=== PATIENT | male | born 1950 | race Caucasian/White ===

== ENCOUNTER 2023-01-14 09:55 | Outpatient (REF) | payer MEDICARE, SELFPAY ==
[2023-01-14 15:43] LABS: Anion Gap 13 (12-20); Blood Urea Nitrogen 12 mg/dL (9-16); Calcium 9.9 mg/dL (8.4-10.2); Carbon Dioxide 26 mmol/L (22-29); Chloride 102 mmol/L (96-108); Cholesterol 159 mg/dL (<200); Estimated Glomerular Filt Rate > 60; Glucose Fasting 98 mg/dL (60-99); HDL Cholesterol 95 mg/dL (>40); LDL Cholesterol Calculated 53 mg/dL (<100); Potassium 4.3 mmol/L (3.3-5.1); Sodium 137 mmol/L (135-145); Triglycerides 55 mg/dL (<150)
== END 2023-01-14 09:56 | disposition home or self-care (01) ==
LOC: HO.CHCLDS 09:55
PROVIDERS: Visit Provider Family Medicine
DX: E87.1 Hypo-osmolality and hyponatremia (principal); E78.5 Hyperlipidemia, unspecified
CPT/HCPCS: 36415; 80048; 80061

== ENCOUNTER → 2025-01-06 08:48 | Outpatient (BNV) | payer MEDICARE, SELFPAY | PROVIDERS: PCP Family Medicine; Visit Provider Radiology Diagnostic Radiology | DX: M75.122 Complete rotator cuff tear or rupture of left shoulder, not specified as traumatic (principal); M65.822 Other synovitis and tenosynovitis, left upper arm | CPT/HCPCS: 73221 ==

== ENCOUNTER 2025-01-06 08:50 | Outpatient (REF) | payer MEDICARE, SELFPAY ==
--- NOTE | ~2025-01-06 | MR_ITS ---
CLINICAL HISTORY: chronic pain unable to lift above 45 degree MR left shoulder without gadolinium Comparison: None provided Findings: No acute fracture or pathologic bone lesion. No significant arthritic changes. Type II acromion. Fluid is present within the subacromial subdeltoid bursa and in the subcoracoid bursa. There is a complete full-thickness tear of the supraspinatus tendon retracted approximately 1.5 cm. There is no significant atrophy of the supraspinatus muscle. The rest of the muscles and tendons of the rotator cuff are intact. There is degeneration of the labrum particularly the posterior aspect. There is no definite evidence of an acute labral tear. The biceps anchor is intact. The biceps tendon is normal. There is tenosynovitis of the long head of the biceps. No tears of the glenoid labrum. There is no definite evidence of an acute ligamentous injury. IMPRESSION: 1. Complete full-thickness tear of the supraspinatus tendon with retraction. 2. Fluid within the subacromial subdeltoid bursa and within the subcoracoid bursa. 3. Tenosynovitis of the long head of the biceps. 4. Degeneration of the glenoid labrum particularly posteriorly. This document has been electronically signed by: Chandler Moore MD on 01/07/2025 11:31:06
--- OUTSIDE RECORDS SUMMARY | 2025-01-06 08:54 | XMS_ITS | Encounter Summary ---
Author Organization [employer] Address [address] [place] [address] Care Team Providers Care Electro Optical Engineer Name Role Phone Natty Cotto MD Primary Care Provider [phone] Reason for Visit * Reason Comments Med Refill Encounter Details Date Type Department Care Team ([facility] st Contact Info) Description 12/15/2024 Refill [facility] [address] [place] [address] Donna Loza MD [address] [place], [place] [phone] Stented coronary artery; Hypertension, unspecified type Social History Tobacco Use Types Packs/Day Years Used Date Smoking Tobacco: Every Day Cigarettes Passive Smoke Exposure: Never Smokeless Tobacco: Never Depression Answer Date Recorded Patient Health Questionnaire-9 Score 3 12/23/2022 Housing Stability Answer Date Recorded What is your housing situation today? I have martha grace 03/08/[address] you li ve. Do you have problems with any of the following? None of the above 03/08/2023 Food Insecurity Answer Date Recorded Within the past 12 months, y ou worried that your food would run out before you got money to buy more: Never True 03/08/2023 Within the past 12 months,th e food you bought just didn't last and you didn't have enough money to get more: Never True 10/2022 Transportation Answer Date Recorded In the past 12 months, has l ack of transportation kept you from medical appts, meetings, work or from getting things needed for daily living? Yes, it has kept me from medical appointments or getting medications. 07/26/2023 Utilities Answer Date Recorded In the past 12 months, has t he electric, gas, oil or water company threatened to shut off services in your home? No 03/08/2023 Depression Answer Date Recorded Patient Health Questionnaire-2 Score 2 12/23/2022 Sex and Gender Information Value Date Recorded Sex Assigned at Male 03/01/2022 10:36 AM EDT Legal Sex Male 10:36 AM EDT Gender Identity Male 03/01/2022 10:36 AM EDT Sexual Orientation Straight 03/01/2022 10 :36 AM EDT documented as of this encounter Plan of Treatment Upcoming Encounters Date Type Department Care Team (Late st Contact Info) Description 01/17/2025 11:15 AM EDT Office Visit [facility] MED & PEDS [address] [place] [address] Natty Cotto MD [address] [place] [address] documented as of this encounter Visit Diagnoses Diagnosis Stented coronary artery Postsurgical percutaneous transluminal coronary angioplasty status Hypertension, unspecified type documented in this encounter Additional Health Concerns Assessment Noted Time PHQ-9 Depression Total Score: 3 12/24/19 23 1:40 PM EDT documented as of this encounter Care Teams Electro Optical Engineer Relationship Specialty Start Date End Date Natty Cotto MD [address] [place] [address] PCP - General Family Medicine 04/15/21 documented as of this encounter
--- OUTSIDE RECORDS SUMMARY | 2025-01-06 08:54 | XMS_ITS | Clinical Summary ---
Author Organization [employer] Address [address] [facility] 7t [place] [address] Care Team Providers Care Leisure Studies Professor Name Role Phone Natty Cotto MD Primary Care Provider [phone] Allergies No known active allergies Medications amLODIPine (Norvasc) 10 MG tabletIndicati ons:Hypertensi on, unspecified type Take 1 tablet (10 mg) by mouth Once per day. 90 tablet 1 12/13/19 25 Active aspirin (Aspirin Low Dose) 81 MG EC tabletIndicati ons:Stented coronary artery Take 1 tablet (81 mg) by mouth Once per day. 90 tablet 1 12/13/19 25 Active losartan (Cozaar) 50 MG tabletIndicati ons:Hypertensi on, unspecified type Take 1 tablet (50 mg) by mouth Once per day. 90 tablet 1 12/13/19 25 Active rosuvastatin (Crestor) 40 MG tabletIndicati ons:Stented coronary artery Take 1 tablet (40 mg) by mouth Once per day. 90 tablet 1 12/13/19 25 Active sildenafil (Viagra) 100 MG tabletIndicati ons:PVD (peripheral vascular disease) ([facility]) Take 1 tablet (100 mg) by mouth if needed for erectile dysfunction. TAKE 1 TABLET BY MOUTH IF NEEDED FOR ERECTILE DYSFUNCTION 10 tablet 2 12/13/19 25 Active Aspirin Low Dose 81 MG EC tablet TAKE 1 TABLET BY MOUTH EVERY DAY 90 tablet 1 06/21/19 25 025 Discontinued(R eorder (will not trigger notification to Pharmacy)) rosuvastatin (Crestor) 40 MG tablet Take 1 tablet (40 mg) by mouth Once per day. 90 tablet 1 06/20/19 25 025 Discontinued(R eorder (will not trigger notification to Pharmacy)) losartan (Cozaar) 50 MG tabletIndicati ons:Hypertensi on, unspecified type TAKE 1 TABLET(50 MG) BY MOUTH IN THE MORNING 90 tablet 1 07/14/19 025 Discontinued(R eorder (will not trigger notification to Pharmacy)) amLODIPine (Norvasc) 10 MG tabletIndicati ons:Hypertensi on, unspecified type TAKE 1 TABLET(10 MG) BY MOUTH IN THE MORNING 90 tablet 1 07/14/19 025 Discontinued(R eorder (will not trigger notification to Pharmacy)) sildenafil (Viagra) 100 MG tablet TAKE 1 TABLET BY MOUTH IF NEEDED FOR ERECTILE DYSFUNCTION 10 tablet 09/21/19 025 Discontinued(R eorder (will not trigger notification to Pharmacy)) Active Problems Problem Noted Date Diagnosed Date Chronic left shoulder pain 12/19/2024 Wheezing 04/29/2023 Chronic cough 04/29/2023 Assessment & Plan (05/05/2023 9:37 AM EST): Will send to PFT testing to r/o obstructive lung disease, hx of smoking. Mild wheezing on exam, declined ENRIQUE. Screening for lung cancer 04/29/2023 Alcoholism 10/01/2022 Cigarette smoker 10/01/2022 Decreased right shoulder range of motion 023 Assessment & Plan (10/15/2022 11:27 AM EDT): Will send for shoulder xray and consider joint injection if necessary. Noise-induced hearing loss of both ears 10/02/19 23 Stented coronary artery 10/01/2022 Assessment & Plan (10/01/2022 10:33 AM EDT): Will refer to cardiology. Vision loss, bilateral 10/01/2022 Hypertension 10/01/2022 Assessment & Plan (05/05/2023 9:37 AM EST): Controlled. Continue current regimen. Assessment & Plan (12/23/2022 2:24 PM EDT): Continue current regimen.Will schedule nursing appointment in 3 weeks to assess home readings and adjust regimen as needed. Assessment & Plan (10/15/2022 11:27 AM EDT): Improved but still not within range. Will add losartan to regimen and follow up in 6 weeks. Assessment & Plan (10/01/2022 10:32 AM EDT): Continued elevated readings. Will start on amlodipine 10 mg. Advised to RTC if experiencing lower extremity swelling. Will follow up in x2 weeks and send labs to recheck levels. PVD (peripheral vascular disease) 10/01/2022 Assessment & Plan (10/15/2022 11:26 AM EDT): Resend referral for vascular ultrasound. Assessment & Plan (10/01/2022 10:32 AM EDT): Will refer to vascular surgeon for ultrasound and BP readings of lower extremities to assess blockage. Will start on rosuvastatin 40 mg. 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 04/29/2023 04/29/2023 Encounters Date Type Department Care Team Description 12/19/2024 3:45 PM EDT Office Visit [facility] PED[facility] [address] [place] [address] Natty Cotto MD Chronic left shoulder pain (Primary Dx); Primary hypertension 12/19/2024 Travel 12/15/2024 Refill [facility] [address] [place], [place] [phone] Donna Loza MD Stented coronary artery; Hypertension, unspecified type 12/12/2024 Telephone [facility] PED[facility] [address] [place], [place] [phone] Natty Cotto MD chart prep 12/12/2024 Telephone [facility] [address] [place], [place] [phone] Natty Cotto MD call back 12/12/2024 Telephone [facility] PED[facility] [address] [place], [place] [phone] Natty Cotto MD from Last 3 Months Immunizations Immunization Administration Dates Next Due Influenza injectable quadrivalent preservative f ree 04/29/2023 Tdap 03/09/2019 Social History Tobacco Use Types Packs/Day Years Used Date Smoking Tobacco: Every Day Cigarettes Passive Smoke Exposure: Never Smokeless Tobacco: Never Tobacco Cessation:Ready to Q uit: Not Asked; Counseling Given: Not Answered Depression Answer Date Recorded Patient Health Questionnaire-9 [...] Orientation Straight 03/01/2022 10 :36 AM EDT Last Filed Vital Signs Vital Sign Reading Time Taken Comments Blood Pressure 142/76 12/19/2024 3:25 PM EDT Pulse 82 12/19/2024 3:25 PM EDT Temperature 36.8 C (98.2 F) 12/19/2024 3:25 PM EDT Respiratory Rate 14 12/19/2024 3:25 PM EDT Oxygen Saturation 98% 12/19/2024 3:25 PM EDT Inhaled Oxygen Concentration - - Weight 73.5 kg (162 lb) 12/19/2024 3:25 PM EDT Height 167 cm (5' 5.75 ) 12/19/2024 3:25 PM EDT Body Mass Index 26.35 12/19/2024 3:25 PM EDT Plan of Treatment Upcoming Encounters Date Type Department Care Team (Late st Contact Info) Description 01/17/2025 11:15 AM EDT Office Visit [facility] MED & PEDS [address] [place] [address] Natty Cotto MD [address] [place] [address] Health Maintenance Due Date Last Done Comments CT Colonography 1950 Colonoscopy 1950 Colorectal Cancer Screening 1950 FIT DNA/Cologuard 1950 FIT 1950 FOBT 1950 Sigmoidoscopy 1950 Alcohol/Substance Use Screening 1964 Hepatitis C Screening 1970 Pneumococcal Vaccine: 50+ Years (1 of 2 - PCV) 07/23/1971 Zoster Vaccines (1 of 2) 2002 Depression Screening 12/24/2023 12/23/2022, 12/23/2022 SDOH Screening 07/25/2024 07/26/2023 COVID-19 Vaccine (3 - 2024-2 6 season) 2024 08/09/2020, 07/19/2020 Influenza Vaccine (#1) 2024 04/29/2023 Tobacco Screening 12/25/2025 12/25/2024 RSV Patients and Patients Aged 60 years or older (1 - 1-dose 75+ series) 07/23/2027 Lipid Panel 01/15/2028 01/14/2023, 10/01/2022, 05/07/2021 DTaP/Tdap/Td Vaccines (2 - T d or Tdap) 03/09/2029 03/09/2019 HIB Vaccines Aged Out No longer eligi ble based on patient's age to complete this topic HPV Vaccines Aged Out No longer eligi ble based on patient's age to complete this topic Hepatitis A Vaccines Aged Out No long er eligible based on patient's age to complete this topic Hepatitis B Vaccines Aged Out No long er eligible based on patient's age to complete this topic IPV Vaccines Aged Out No longer eligi ble based on patient's age to complete this topic Meningococcal B Vaccine Aged Out No l onger eligible based on patient's age to complete this topic Meningococcal Vaccine Aged Out No hayde robyn eligible based on patient's age to complete this topic RSV under 20 months Aged Out No longe r eligible based on patient's age to complete this topic Rotavirus Vaccines Aged Out No longer eligible based on patient's age to complete this topic Procedures Procedure Name Priority Date/Time Associated Diagnosis Comments LIPID PANEL, STANDARD Routine 01/14/2023 9:59 AM EDT Hyperlipidemia, unspecified hyperlipidemia type from Last 3 Months or Most Recently Relevant to Health Maintenance Results * Lipid Panel, Standard (01/14/2023 9:59 AM EDT) Triglycerides 55 <150 mg/dL [facility] Comment:Desirable Triglyceri de: less than 150 mg/dLBorderline High Triglyceride 150-199 mg/dLHigh Triglyceride: 200-499 mg/dLVery High Triglyceride: greater than or equal to 5OO mg/dL Cholesterol 159 <200 mg/dL [facility] Comment:Desirable Cholestero l: less than 200 mg/dLBorderline High Cholesterol: 200-239 mg/dLHigh Cholesterol: greater than 239 mg/dL LDL Cholesterol Calculated 53 <100 mg/dL [facility] Comment:Desirable LDL: less than 100 mg/dLNear Optimal/Above Optimal LDL: 110- 129 mg/dLBorderline High LDL: 130-159 mg/dLHigh LDL: 160-189 mg/dLVery High LDL: greater than or equal to 190 mg/dL HDL Cholesterol 95 >40 mg/dL [facility] Comment:Desirable HDL: great er than 40 mg/dL Note: This HDL assay may give artificially low results in patients with liver disease. Blood Venous blood specimen / Unknown 01/14/2023 9:59 AM EDT 01/14/2023 2:58 PM EDT us Natty Cotto MD LAB BLOOD ORDERABLES Final Re sult [facility] [address] [place] [address] [phone] from Last 3 Months or Most Recently Relevant to Health Maintenance Insurance [id number] MEDICARE ADVANTAGE Care Teams Leisure Studies Professor Relationship Specialty Start Date End Date Natty Cotto MD [address] [place] [address] PCP - General Family Medicine 04/15/21
== END 2025-01-06 08:51 | disposition home or self-care (01) ==
LOC: HO.MRI 08:50
PROVIDERS: PCP Family Medicine; Visit Provider Family Medicine
DX: M25.512 Pain in left shoulder (principal); G89.29 Other chronic pain
CPT/HCPCS: 73221

== ENCOUNTER 2025-03-25 08:26 | Outpatient (AMB) | payer MEDICARE, SELFPAY ==
--- OUTSIDE RECORDS SUMMARY | 2025-03-25 08:33 | XMS_ITS | Clinical Summary ---
Author Organization [employer] Address [address] [facility] [address]t [place] [address] Care Team Providers Care Rawhide Bone Roller Name Role Phone Natty Cotto MD Primary Care Provider Allergies No known active allergies Medications amLODIPine (Norvasc) 10 MG tabletIndication s:Hypertension, unspecified type Take 1 tablet (10 mg) by mouth Once per day. 90 tablet 1 5 Active aspirin (Aspirin Low Dose) 81 MG EC tabletIndication s:Stented coronary artery Take 1 tablet (81 mg) by mouth Once per day. 90 tablet 1 5 Active losartan (Cozaar) 50 MG tabletIndication s:Hypertension, unspecified type Take 1 tablet (50 mg) by mouth Once per day. 90 tablet 1 5 Active rosuvastatin (Crestor) 40 MG tabletIndication s:Stented coronary artery Take 1 tablet (40 mg) by mouth Once per day. 90 tablet 1 5 Active sildenafil (Viagra) 100 MG tabletIndication s:PVD (peripheral vascular disease) Take 1 tablet (100 mg) by mouth if needed for erectile dysfunction. TAKE 1 TABLET BY MOUTH IF NEEDED FOR ERECTILE DYSFUNCTION 10 tablet 2 5 Active Active Problems Problem Noted Date Diagnosed Date Chronic left shoulder pain 12/19/2024 Wheezing 04/29/2023 Chronic cough 04/29/2023 Assessment & Plan (05/05/2023 9:37 AM EST): Will send to PFT testing to r/o obstructive lung disease, hx of smoking. Mild wheezing on exam, declined ENRIQUE. Screening for lung cancer 04/29/2023 Alcoholism ([facility]CC) 10/01/2022 Cigarette smoker 10/01/2022 Decreased right shoulder [...] Encounters Date Type Department Care Team Description 03/18/2025 Refill [facility] [address] [place] [address] Donna Loza MD Stented coronary artery 03/13/2025 Telephone [facility]EDS [address] [place] [address] Natty Cotto MD fyi 01/17/2025 Telephone [facility] [address] [place] [address] Natty Cotto MD 01/10/2025 Patient Outreach [facility] [address] [place] [address] Natty Cotto MD Pre-visit Planning (Pre visit planning LVM ) from Last 3 Months Immunizations Immunization Administration [...] is your housing situation today? I have marthadora grace 03/08/[address] you [...] 12/19/2024 3:25 PM EDT Plan of Treatment Health Maintenance Due Date Last Done Comments [...] Procedure Name Priority Date/Time Associated Diagnosis Comments MR SHOULDER WO CONTRAST LEFT Routine 01/07/2025 11:31 AM EDT Chronic left shoulder pain LIPID PANEL, STANDARD Routine 01/14/2023 9:59 AM EDT Hyperlipidemia, unspecified hyperlipidemia type from Last 3 Months or Most Recently Relevant to Health Maintenance Results * MR Shoulder w/o Contrast Left (01/07/2025 11:31 AM EDT) Anatomical Region Laterality Modality Upper Extremities, Shoulder Left Magn etic Resonance 01/07/2025 11:3 1 AM EDT Narrative 01/07/2025 11:32 AM EDT [place] [address] Magnetic Resonance Report Signed Patient: Mohsen Banegas MR#: [id number] : 1950 Acct:[id number] Age/Sex: 74 / M ADM Date: 01/06/25 Loc: HO.MRI Attending Dr: Natty Cotto MD Ordering Physician: Natty Cotto MD Date of Service: 01/06/25 Procedure(s): MR shoulder LT wo con Accession Number(s): [id number] cc: Natty Cotto MD Reason for Exam: chronic pain unable to lift above 45 degree CLINICAL HISTORY: chronic pain unable to lift above 45 degree MR left shoulder without gadolinium Comparison: None provided Findings: No acute fracture or pathologic bone lesion. No significant arthritic changes. Type II acromion. Fluid is present within the subacromial subdeltoid bursa and in the subcoracoid bursa. There is a complete full-thickness tear of the supraspinatus tendon retracted approximately 1.5 cm. There is no significant atrophy of the supraspinatus muscle. The rest of the muscles and tendons of the rotator cuff are intact. There is degeneration of the labrum particularly the posterior aspect. There is no definite evidence of an acute labral tear. The biceps anchor is intact. The biceps tendon is normal. There is tenosynovitis of the long head of the biceps. No tears of the glenoid labrum. There is no definite evidence of an acute ligamentous injury. IMPRESSION: 1. Complete full-thickness tear of the supraspinatus tendon with retraction. 2. Fluid within the subacromial subdeltoid bursa and within the subcoracoid bursa. 3. Tenosynovitis of the long head of the biceps. 4. Degeneration of the glenoid labrum particularly posteriorly. This document has been electronically signed by: Chandler Moore MD on 01/07/2025 11:31:06 Dictated By: Chandler Moore MD Signed By: <Electronically signed by Chandler Moore MD in [place]> 01/07/25 1132 DD/ 1131 TD/TT: 01/07/25 1131 Human Resources Associate: Procedure Note Donotuseinterpreter, Image - 01/07/2025 [place] [address] Magnetic Resonance Report Signed Patient: Abeba Banegas#: [id number] : 1950cct:[id number] Age/Sex: 74 / MADM Date: 01/06/25 Loc: HO.MRI Attending Dr: Natty Cotto MD Ordering Physician: Natty Cotto MD Date of Service: 01/06/25 Procedure(s): MR shoulder LT wo con Accession Number(s): [id number] cc: Natty Cotto MD Reason for Exam: chronic pain unable to lift above 45 degree CLINICAL HISTORY: chronic pain unable to lift above 45 degree MR left shoulder without gadolinium Comparison: None provided Findings: No acute fracture or pathologic bone lesion. No significant arthritic changes. Type II acromion. Fluid is present within the subacromial subdeltoid bursa and in the subcoracoid bursa. There is a complete full-thickness tear of the supraspinatus tendon retracted approximately 1.5 cm. There is no significant atrophy of the supraspinatus muscle. The rest of the muscles and tendons of the rotator cuff are intact. There is degeneration of the labrum particularly the posterior aspect. There is no definite evidence of an acute labral tear. The biceps anchor is intact. The biceps tendon is normal. There is tenosynovitis of the long head of the biceps. No tears of the glenoid labrum. There is no definite evidence of an acute ligamentous injury. IMPRESSION: 1. Complete full-thickness tear of the supraspinatus tendon with retraction. 2. Fluid within the subacromial subdeltoid bursa and within the subcoracoid bursa. 3. Tenosynovitis of the long head of the biceps. 4. Degeneration of the glenoid labrum particularly posteriorly. This document has been electronically signed by: Chandler Moore MD on 01/07/2025 11:31:06 Dictated By: Chandler Moore MD Signed By: <Electronically signed by Chandler Moore MD in [place]> 01/07/25 1132 DD/ 1131 TD/TT: 01/07/25 1131 Human Resources Associate: us Natty Cotto MD IMG MRI PROCEDURES Edited Res ult - Final * Lipid Panel, Standard (01/14/2023 9:59 AM EDT) Triglycerides 55 <150 mg/dL [facility] Comment:Desirable Triglyceri de: less than 150 mg/dLBorderline High Triglyceride 150-199 mg/dLHigh Triglyceride: 200-499 mg/dLVery High Triglyceride: greater than or equal to 5OO mg/dL Cholesterol 159 <200 mg/dL [facility] Comment:Desirable Cholestero l: less than 200 mg/dLBorderline High Cholesterol: 200-239 mg/dLHigh Cholesterol: greater than 239 mg/dL LDL Cholesterol Calculated 53 <100 mg/dL [facility] Comment:Desirable LDL: less than 100 mg/dLNear Optimal/Above Optimal LDL: 110- 129 mg/dLBorderline High LDL: 130-159 mg/dLHigh LDL: 160-189 mg/dLVery High LDL: greater than or equal to 190 mg/dL HDL Cholesterol 95 >40 mg/dL [facility] Comment:Desirable HDL: great er than 40 mg/dL Note: This HDL assay may give artificially low results in patients with liver disease. Blood Venous blood specimen / Unknown 01/14/2023 9:59 AM EDT 01/14/2023 2:58 PM EDT us Natty Cotto MD LAB BLOOD ORDERABLES Final Re sult Performing Organization Address City/State/[facility] Co de Phone Number [facility] [address] [place] [phone] from Last 3 Months or Most Recently Relevant to Health Maintenance Insurance MEDICARE ADVANTAGE Care Teams Rawhide Bone Roller Relationship Specialty Start Date End Date Natty Cotto MD [address] [place] [address] PCP - General Family Medicine 04/15/21
--- OUTSIDE RECORDS SUMMARY | 2025-03-25 08:33 | XMS_ITS | Encounter Summary ---
Author Organization [employer] Address [address] [facility] [place] [address] Care Team Providers Care Perinatal Social Worker Name Role Phone Natty Cotto MD Primary Care Provider [phone] Reason for Visit * Reason Comments Med Refill Encounter Details Date Type Department Care Team ([facility] st Contact Info) Description 12/15/2024 Refill [facility] [address] [place] [address] Donna Loza MD [address] [place], [place] [phone] Stented coronary artery; Hypertension, unspecified type Social History Tobacco Use Types Packs/Day Years Used Date Smoking Tobacco: Every Day Cigarettes Passive Smoke Exposure: Never Smokeless Tobacco: Never Depression Answer Date Recorded Patient Health Questionnaire-9 Score 3 12/23/2022 Housing Stability Answer Date Recorded What is your housing situation today? I have martha lesly 03/08/[address] you li [...] as of this encounter Plan of Treatment Not on file documented as of this encounter Visit Diagnoses Diagnosis Stented coronary artery Postsurgical percutaneous transluminal coronary angioplasty status Hypertension, unspecified type documented in this encounter Additional Health Concerns Assessment Noted Time PHQ-9 Depression Total Score: 3 12/24/19 23 1:40 PM EDT documented as of this encounter Care Teams Perinatal Social Worker Relationship Specialty Start Date End Date Natty Cotto MD [address] [place] [address] PCP - General Family Medicine 04/15/21 documented as of this encounter
--- OUTSIDE RECORDS SUMMARY | 2025-03-25 08:33 | XMS_ITS | Encounter Summary ---
Author Organization [employer] Address [address] [facility] 7[address] [place] [address] Care Team Providers Care [facility] Representative Name Role Phone Natty Cotto MD Primary Care Provider Reason for Visit * Reason Onset Date Comments fyi 03/13/2025 Encounter Details Date Type Department Care Team ([facility] st Contact Info) Description 03/13/2025 Telephone [facility] [address] [place], [place] [phone] Natty Cotto MD [address] [place] [address] fyi Social History Tobacco Use Types Packs/Day Years [...] the past 12 months, has t he [employer], oil or water [employer] threatened to shut off services in your home? No 03/08/2023 Depression Answer Date Recorded Patient Health Questionnaire-2 Score 2 12/23/2022 Sex and Gender Information Value Date Recorded Sex Assigned at Male 03/01/2022 10:36 AM EDT Legal Sex Male 10:36 AM EDT Gender Identity Male 03/01/2022 10:36 AM EDT Sexual Orientation Straight 03/01/2022 10 :36 AM EDT documented as of this encounter Miscellaneous Notes * Telephone Encounter - Victor Manuel Nixon - 03/13/2025 11:00 AM EST Tc from Allegra at [facility] stating she seen pt today for annual wellness visit and pt has what he thinks is a wart by left knee but Allegra does not think it is a wart . It is not infected butpt is treating it like wart . Allegra is requesting for pt to be scheduled for apt to have it evaluated by pcp and have it referred to derm to check and see if it is skin cancerrrr Contact Allegra at [phone] documented in this encounter Plan of Treatment Not on file documented as of this encounter Visit Diagnoses Not on filedocumented in this encounter Additional Health Concerns Assessment Noted Time PHQ-9 Depression Total Score: 3 12/24/19 23 1:40 PM EDT documented as of this encounter Care Teams Medical Center Representative Relationship Specialty Start Date End Date Natty Cotto MD [address] [place] [id number] PCP - General Family Medicine 04/15/21 documented as of this encounter
--- OUTSIDE RECORDS SUMMARY | 2025-03-25 08:33 | XMS_ITS | Encounter Summary ---
Author Organization [employer] Address [address] 7[address] [place] [address] Care Team Providers Care Gift Consultant Name Role Phone Natty Cotto MD Primary Care Provider [phone] Reason for Visit * Reason Comments Med Refill Encounter Details Date Type Department Care Team ([facility] st Contact Info) Description 03/18/2025 Refill [facility] MEDICINE [address] [place] [address] Donna Loza MD [address] [place], [place] [phone] Stented coronary artery Social History Tobacco Use Types Packs/Day Years [...] artery Postsurgical percutaneous transluminal coronary angioplasty status documented in this encounter Additional Health Concerns Assessment Noted Time PHQ-9 Depression Total Score: 3 12/24/19 23 1:40 PM EDT documented as of this encounter Care Teams Gift Consultant Relationship Specialty Start Date End Date Natty Cotto MD [address] [place] [address] PCP - General Family Medicine 04/15/21 documented as of this encounter
--- NOTE | 2025-03-25 08:36 | MHC.OFFVIS ---
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 Patient referred by [facility], per note constant shoulder pain that is increasingly getting worse. Limited ROM, affecting his AODL. MRI was done at [facility]. Today patient reports his pain has been present for years, located at the anterior and posterior aspect of shoulder. Denies injury. He performs at home exercises however lately he has not been able to due to his discomfort. 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 He states the shoulder has been an issue for many years. He does not recall an injury. He is a retired health care social worker. He is right hand dominant. He uses the left most and is unable to carry gallon of milk or reach the back of his head. He has a history of alcohol and tobacco use. States he has not had a drink in 89 days. He currently smokes a pack and a half of cigarettes a day. He lives alone. [facility] Medical History (Updated 03/25/25 @ 09:00 by Esther Lloyd PA-C) Hyperlipidemia Hypertension Surgical History (Updated 03/25/25 @ 08:41 by NADEGE Benz) Hx of knee surgery Hx of cholecystectomy Social History (Updated 03/25/25 @ 08:41 by NADEGE Benz) Patient Tobacco Use Status: Current everyday Tobacco user Current occupational status: retired Current occupation: right hand dominant Review of Systems Const All systems reviewed & are unremarkable except as noted in HPI and below Physical Exam Vital Signs: BMI result Body Mass Index 26.6 Const General: cooperative and no acute distress Orientation/consciousness: patient oriented x3 Resp Effort & Inspection: normal respiratory effort and able to speak in complete sentences Cardio Peripheral pulses: Peripheral pulses 2+ throughout Neuro General: patient oriented x3 Extrem Other: Left shoulder normal to inspection. He can bring his hand just below the level of his head. Internal rotation to side pocket. Significant weakness with rotator cuff strength testing. Results Reviewed Results Reviewed: X-rays of the left shoulder obtained in the office today and reviewed by me show glenohumeral joint arthritis with migration of the humeral head. MRI left shoulder 01/07/25 IMPRESSION: 1. Complete full-thickness tear of the supraspinatus tendon with retraction. 2. Fluid within the subacromial subdeltoid bursa and within the subcoracoid bursa. 3. Tenosynovitis of the long head of the biceps. 4. Degeneration of the glenoid labrum particularly posteriorly. Assessment & Plan Assessment & Plan (1) Rotator cuff arthropathy of left shoulder: Code(s): M12.812 - Other specific arthropathies, not elsewhere classified, left shoulder Category: Medical Plan: I discussed with the patient the extent of his condition. While he does have a rotator cuff tear with retraction he also has some glenohumeral joint arthritis. Given his severely limited motion he would be a candidate for reverse total shoulder. I explained to him the details of this procedure however given his current tobacco use this puts him at a higher risk of postop complications. The patient also does not have a good support system at home. I did explain he could try physical therapy which may give him some strength and stability however we will not improve his motion. We discussed the role of steroid injections which she is not interested in. I explained to him he needs to contact his primary care doctor to work on smoking cessation and once this is under control he can contact our office and meet with Dr. Green to discuss further. Patient is content with this plan and all questions were answered. Orders: Orders XR shoulder LT min 2V Today M25.512 - Pain in left shoulder Coding Level of Care Code Complex visit Add On G2211 Diagnoses Rotator cuff arthropathy of left shoulder M12.812
[2025-03-25 08:43] VITALS: BMI 26.6
== END 2025-03-25 08:58 | disposition home or self-care (01) ==
LOC: HO.HOS 08:27
PROVIDERS: PCP Family Medicine; Visit Provider Physician Assistant
DX: M12.812 Other specific arthropathies, not elsewhere classified, left shoulder (principal)
CPT/HCPCS: 99213; G2211

== ENCOUNTER → 2025-03-25 08:28 | Outpatient (BNV) | payer MEDICARE, SELFPAY | PROVIDERS: Visit Provider Radiology Diagnostic Radiology | DX: M25.512 Pain in left shoulder (principal) | CPT/HCPCS: 73030 ==

== ENCOUNTER 2025-03-25 08:31 | Outpatient (REF) | payer MEDICARE, SELFPAY ==
--- NOTE | ~2025-03-25 | XR_ITS ---
EXAMINATION: XR SHOULDER 2 OR MORE VIEWS LEFT HISTORY: M25.512 - Pain in left shoulder COMPARISON: There are no prior studies available for comparison. FINDINGS: Three views of the left shoulder are submitted. Osseous mineralization is normal. There is no fracture or dislocation. The glenohumeral joint is maintained. There is slight narrowing of the AC joint. The soft tissues are unremarkable. XR/XR shoulder LT min 2V IMPRESSION: Slight narrowing of the AC joint. Electronically signed by: Darek Dewey MD 03/25/2025 08:58 AM PABLO TERRAZAS
--- OUTSIDE RECORDS SUMMARY | 2025-03-26 08:49 | XMS_ITS | Encounter Summary ---
Author Organization [employer] Address [address] [place] [address] Care Team Providers Care Mobile Crane Operator Name Role Phone Natty Cotto MD Primary Care Provider [phone] Reason for Visit * Reason Comments Med Refill Encounter Details Date Type Department Care Team ([facility] st Contact Info) Description 12/15/2024 Refill [facility]INE [address] [place] [address] Donna Loza MD [address] [place], [place] [phone] Stented coronary artery; Hypertension, unspecified type Social [...] documented as of this encounter Care Teams Mobile Crane Operator Relationship Specialty Start Date End Date Natty Cotto MD [address] [place] [address] PCP - General Family Medicine 04/15/21 documented as of this encounter
--- OUTSIDE RECORDS SUMMARY | 2025-03-26 08:49 | XMS_ITS | Encounter Summary ---
Author Organization [employer] Address [address] [facility] [address] [facility] [address] [place] [address] Care Team Providers Care Child Care Associate Teacher Name Role Phone Natty Cotto MD Primary Care Provider [phone] Reason for Visit * Reason Comments Med Refill Encounter Details Date Type Department Care Team ([facility] st Contact Info) Description 03/18/2025 Refill [facility] MEDICINE [address] [place] [address] Donna Loza MD [address] [place], [place] [phone] Stented coronary artery Social History Tobacco Use [...] documented as of this encounter Care Teams Child Care Associate Teacher Relationship Specialty Start Date End Date Natty Cotto MD [address] [place] [address] PCP - General Family Medicine 04/15/21 documented as of this encounter
--- OUTSIDE RECORDS SUMMARY | 2025-03-26 08:49 | XMS_ITS | Encounter Summary ---
Author Organization [employer] Address [address] [facility] 7t [place] [address] Care Team Providers Care Rubber Worker Name Role Phone Natty Cotto MD Primary Care Provider Reason for Visit * Reason Onset Date Comments fyi 03/13/2025 Encounter Details Date Type Department Care Team ([facility] st Contact Info) Description 03/13/2025 Telephone [facility] [address] [place], [place] [phone] Natty Cotto MD [address] [place] [address] fyi Social History Tobacco Use Types Packs/Day [...] the past 12 months, has t he [email or web address], [employer], oil or water [employer] threatened to shut off services in your [...] 11:00 AM EST Tc from Allegra at [facility] stating she seen pt today for annual [...] it is skin cancerrrr Contact Allegra at [phone] documented in this encounter Plan of Treatment Not on file documented as of this encounter Visit Diagnoses Not on filedocumented in this encounter Additional Health Concerns Assessment Noted Time PHQ-9 Depression Total Score: 3 12/24/19 23 1:40 PM EDT documented as of this encounter Care Teams Rubber Worker Relationship Specialty Start Date End Date Natty Cotto MD [address] [place] [phone] PCP - General Family Medicine 04/15/21 documented as of this encounter
--- OUTSIDE RECORDS SUMMARY | 2025-03-26 08:49 | XMS_ITS | Clinical Summary ---
Author Organization [employer] Address [address] [facility] 7t [place] [address] Care Team Providers Care Drama Professor Name Role Phone Natty Cotto MD Primary Care Provider [phone] Allergies No known active allergies Medications amLODIPine [...] ENRIQUE. Screening for lung cancer 04/29/2023 Alcoholism ([facility]/HCC) 10/01/2022 Cigarette smoker 10/01/2022 Decreased right shoulder [...] Type Department Care Team Description 03/18/2025 Refill [facility] MEDICINE [address] [place] [address] Donna Loza MD Stented coronary artery 03/13/2025 Telephone [facility] [address] [place] [address] Natty Cotto MD fyi 01/17/2025 Telephone [facility] MED[facility]INE [address] [place] [address] Natty Cotto MD 01/10/2025 Patient Outreach [facility] [address] [place] [address] Natty Cotto MD Pre-visit Planning (Pre visit [...] AM EDT Narrative 01/07/2025 11:32 AM EDT [place] [address] Magnetic Resonance Report Signed Patient: Mohsen Banegas MR#: [id number] : 1950 Acct:[id number] Age/Sex: 74 / M ADM Date: 01/06/25 Loc: HO.MRI Attending Dr: Natty Cotto MD Ordering Physician: Natty Cotto MD Date of Service: 01/06/25 Procedure(s): MR shoulder LT wo con Accession Number(s): [id number] cc: Natty Cotto MD Reason for Exam: [...] 01/07/25 1132 DD/ 1131 TD/TT: 01/07/25 1131 Environmental Restoration Planner: Procedure Note Donotuseinterpreter, Image - 01/07/2025 [place] [address] Magnetic Resonance Report Signed Patient: Abeba Banegas#: [id number] : 1950cct:[id number] Age/Sex: 74 / MADM Date: 01/06/25 Loc: HO.MRI Attending Dr: Natty Cotto MD Ordering Physician: Natty Cotto MD Date of Service: 01/06/25 Procedure(s): MR shoulder LT wo con Accession Number(s): [id number] cc: Natty Cotto MD Reason for Exam: [...] 01/07/25 1132 DD/ 1131 TD/TT: 01/07/25 1131 Environmental Restoration Planner: us Natty Cotto MD IMG MRI PROCEDURES Edited Res ult - Final * Lipid Panel, Standard (01/14/2023 9:59 AM EDT) Triglycerides 55 <150 mg/dL [facility] Comment:Desirable Triglyceri de: less than 150 mg/dLBorderline High Triglyceride 150-199 mg/dLHigh Triglyceride: 200-499 mg/dLVery High Triglyceride: greater than or equal to 5OO mg/dL Cholesterol 159 <200 mg/dL [facility] Comment:Desirable Cholestero l: less than 200 mg/dLBorderline High Cholesterol: 200-239 mg/dLHigh Cholesterol: greater than 239 mg/dL LDL Cholesterol Calculated 53 <100 mg/dL [facility] Comment:Desirable LDL: less than 100 mg/dLNear Optimal/Above Optimal LDL: 110- 129 mg/dLBorderline High LDL: 130-159 mg/dLHigh LDL: 160-189 mg/dLVery High LDL: greater than or equal to 190 mg/dL HDL Cholesterol 95 >40 mg/dL [facility] Comment:Desirable HDL: great er than 40 mg/dL Note: This HDL assay may give artificially low results in patients with liver disease. Blood Venous blood specimen / Unknown 01/14/2023 9:59 AM EDT 01/14/2023 2:58 PM EDT us Natty Cotto MD LAB BLOOD ORDERABLES Final Re sult Performing Organization Address City/State/[facility] Co de Phone Number [facility] [address] [place] [phone] Last 3 Months or Most Recently Relevant to Health Maintenance Insurance MEDICARE ADVANTAGE Care Teams Drama Professor Relationship Specialty Start Date End Date Natty Cotto MD [address] [place] [id number] PCP - General Family Medicine 04/15/21
== END 2025-03-25 08:32 | disposition home or self-care (01) ==
LOC: HO.HOSX 08:31
PROVIDERS: Visit Provider Physician Assistant
DX: M12.812 Other specific arthropathies, not elsewhere classified, left shoulder (principal); F17.200 Nicotine dependence, unspecified, uncomplicated
CPT/HCPCS: 73030; 99212